=== PATIENT | female | born 1970 | race Caucasian/White ===

== ENCOUNTER 2020-10-18 07:31 | Outpatient (REF) | payer OTHER, SELFPAY ==
[2020-10-18 11:14] LABS: Alanine Aminotransferase 13 U/L (0-31); Albumin Level 4.4 g/dL (3.5-5.0); Alkaline Phosphatase 55 U/L (39-117); Anion Gap 12 (12-20); Aspartate Amino Transferase 13 U/L (5-31); Bilirubin Total 0.5 mg/dL (0.0-1.0); Blood Urea Nitrogen 18 mg/dL (9-16); Calcium 9.4 mg/dL (8.4-10.2); Carbon Dioxide 27 mmol/L (22-29); Chloride 104 mmol/L (96-108); Cholesterol 241 mg/dL; Estimated Glomerular Filt Rate > 60; Glucose Fasting 90 mg/dL (60-99); HDL Cholesterol 64 mg/dL; LDL Cholesterol Calculated 162 mg/dl; Potassium 4.3 mmol/L (3.3-5.1); Sodium 139 mmol/L (135-145); Total Protein 7.2 g/dL (6.5-8.0); Triglycerides 79 mg/dL
== END 2020-10-18 07:32 | disposition home or self-care (01) ==
LOC: HO.WFDLDS 07:31
PROVIDERS: Visit Provider Family Medicine
DX: Z00.00 Encounter for general adult medical examination without abnormal findings (principal)
CPT/HCPCS: 36415; 80053; 80061; 84443

== ENCOUNTER 2022-02-18 16:13 | Outpatient (REF) | payer OTHER, SELFPAY | END 2022-02-18 16:14 | disposition home or self-care (01) | LOC: HO.LAB 16:13 | PROVIDERS: Visit Provider Family Medicine | DX: Z13.89 Encounter for screening for other disorder (principal) ==

== ENCOUNTER 2022-02-19 14:00 | Outpatient (REF) | payer OTHER, SELFPAY ==
[2022-02-19 14:04] LABS: Urine Cytology See Pathology rpt
[2022-02-19 14:30] LABS: Appearance Urine Cloudy; Color Urine Yellow; Glucose Urine UA Negative (Negative); Leukocyte Esterase Urine Large (3+) (Negative); Nitrite Urine Negative (Negative); PH 6.5 (5.0-9.0); UMIC TRIGGER UA YES; Urine Blood Moderate (2+) (Negative); Urine Ketones Negative (Negative); Urine Protein Trace mg/dL (Neg-Trace)
[2022-02-19 14:43] LABS: Bacteria Urine Trace (None Seen); Calcium Oxalate Crystals Urine Present; Hyaline Casts Urine 0-2 /LPF (0-2); Squamous Epithelial Cell Urine 0-2 /HPF (0-2); WBC Urine >50 /HPF (0-5)
== END 2022-02-19 14:01 | disposition home or self-care (01) ==
LOC: HO.LNP 14:00
PROVIDERS: Visit Provider Family Medicine
DX: R31.9 Hematuria, unspecified (principal); N39.0 Urinary tract infection, site not specified
CPT/HCPCS: 81001; 87086; 87088; 87186; 88112

== ENCOUNTER 2023-05-28 07:12 | Outpatient (REF) | payer OTHER, SELFPAY ==
[2023-05-28 13:17] LABS: Cholesterol 295 mg/dL (<200); Free T4 (Free Thyroxine) 0.95 ng/dL (0.71-1.85); HDL Cholesterol 77 mg/dL (>40); LDL Cholesterol Calculated 198 mg/dL (<100); Thyroid Stimulating Hormone 2.28 uIU/mL (0.32-4.0); Triglycerides 100 mg/dL (<150)
[2023-05-30 02:28] LABS: Triiodothyronine T3 Free 3.6 pg/mL (2.3-4.2)
== END 2023-05-28 07:13 | disposition home or self-care (01) ==
LOC: HO.WFDLDS 07:12
PROVIDERS: Visit Provider Nurse Practitioner Women's Health
DX: N95.1 Menopausal and female climacteric states (principal)
CPT/HCPCS: 36415; 80061; 84439; 84443; 84481

== ENCOUNTER 2023-09-02 07:28 | Outpatient (REF) | payer OTHER, SELFPAY ==
[2023-09-02 11:33] LABS: Appearance Urine Clear; Color Urine Yellow; Glucose Urine UA Negative (Negative); Leukocyte Esterase Urine Negative (Negative); Nitrite Urine Negative (Negative); Urine Blood Negative (Negative); Urine Ketones Negative (Negative); Urine Protein Negative (Neg-Trace)
[2023-09-02 11:39] LABS: MANUAL DIFF FLAG NO
[2023-09-02 11:41] LABS: Basophils Percent Auto 0.8 % (0-2); Eosinophils Absolute Auto 0.1 X10*3/uL (0.0-0.4); Eosinophils Percent Auto 1.8 % (0-4); Hemoglobin 13.2 g/dl (12.0-16.0); Imm Gran Abs Auto 0.02 X10*3/uL (0.00-0.03); Imm Gran Pct Auto 0.4 % (0.0-0.4); Lymphocytes Absolute Auto 1.9 X10*3/uL (1.2-4.9); Lymphocytes Percent Auto 37.5 % (20-40); Mean Corpuscular HGB Conc 34.7 g/dl (31.0-35.0); Mean Corpuscular Hemoglobin 31.4 pg (27.0-33.0); Mean Corpuscular Volume 90.5 fL (80.0-98.0); Mean Platelet Volume 10.1 fL (9.4-12.3); Monocytes Absolute Auto 0.4 X10*3/uL (0.1-1.2); Monocytes Percent Auto 7.6 % (2-11); Neutrophils Absolute Auto 2.7 x10*3/uL (2.0-8.3); Neutrophils Percent Auto 51.9 % (45-73); Platelet Count 296 X10*3/uL (160-400); Red Cell Distribution Width 12.5 % (11.0-16.0); White Blood Count 5.1 X10*3/uL (4.8-10.8)
[2023-09-02 12:30] LABS: Alanine Aminotransferase 32 U/L (0-31); Albumin Level 4.2 g/dL (3.5-5.0); Alkaline Phosphatase 70 U/L (39-117); Anion Gap 11 (12-20); Aspartate Amino Transferase 26 U/L (5-31); Bilirubin Total 0.4 mg/dL (0.0-1.0); Blood Urea Nitrogen 17 mg/dL (9-16); Calcium 9.3 mg/dL (8.4-10.2); Carbon Dioxide 28 mmol/L (22-29); Chloride 104 mmol/L (96-108); Cholesterol 247 mg/dL (<200); Estimated Glomerular Filt Rate > 60; Glucose Fasting 93 mg/dL (60-99); HDL Cholesterol 67 mg/dL (>40); LDL Cholesterol Calculated 163 mg/dL (<100); Potassium 4.2 mmol/L (3.3-5.1); Sodium 139 mmol/L (135-145); Total Protein 7.3 g/dL (6.5-8.0); Triglycerides 88 mg/dL (<150)
[2023-09-02 12:35] LABS: TSH reflex Free T4 2.06 uIU/mL (0.32-4.0); Vitamin D 25-OH Total 51.3 ng/mL (>30)
[2023-09-02 12:50] LABS: Microalbumin Urine < 5.0 mg/L
== END 2023-09-02 07:29 | disposition home or self-care (01) ==
LOC: HO.WFDLDS 07:28
PROVIDERS: Visit Provider Family Medicine
DX: Z00.00 Encounter for general adult medical examination without abnormal findings (principal); E78.00 Pure hypercholesterolemia, unspecified; E55.9 Vitamin D deficiency, unspecified
CPT/HCPCS: 36415; 80053; 80061; 81003; 82043; 82306; 82570; 84443; 85025

== ENCOUNTER → 2023-09-12 16:26 | Outpatient (AMB) | payer OTHER, SELFPAY ==
[2023-09-12 16:30] VITALS: BP 138/72; PULSE 74; O2SAT 96; BMI 28.6
--- NOTE | 2023-09-12 16:30 | MHC.PC.OV ---
Vital Signs 09/12/23 16:30 Height 4 ft 11 in Weight 141 lb 6 oz BMI 28.6 BP 138/72 Blood Pressure Location Lt brachial Position Sitting Pulse 74 Pulse Source Pulse Oximeter Pulse Oximetry (%) 96 Oxygen Delivery Method Room Air Intake Visit Reasons: Lab review/ Cholesterol Intake Note: Patient is here for lab review/ on her cholesterol today. Allergies sulfamethoxazole [From Bactrim] Allergy (Verified 09/12/23 16:31) skin rash, fever trimethoprim [From Bactrim] Allergy (Verified 09/12/23 16:31) skin rash, fever Medication List - Last Reconciled 09/12/23 by Eric Doan MD No Known Home Meds Tobacco use date assessed: 09/12/23 Dental Screening Dental Screen Date: 07/15/23 HPI Lab review/ Cholesterol HPI Details 53 y/o female presents to f/u hyperlipidemia and labs. Had started her on artovastatin for her cholesterol levels. Labs were drawn 09/02/23. Reviewed labs with pt. Elevated ALT of 32. Triglycerides 88. TC 247. LDL improved from 198 to 163. HDL 67. She reports she had not been able to tolerate the artovastatin. Pt notes she continues to eat well and continues to exercise but still has difficulties losing weight. [facility] Medical History Menopause Vertigo UTI (urinary tract infection) Surgical History History of Family History (Updated 09/12/23 @ 16:41 by Angeles Poole CMA) Mother Substance abuse in family Mental health disorder Father Substance abuse in family Mental health disorder Brother Substance abuse in family Mental health disorder Sister Substance abuse in family Mental health disorder Maternal Grandfather Mental health disorder Paternal Grandfather Mental health disorder Social History Housing: House Alcohol intake: never Patient Tobacco Use Status: Former Tobacco user e-Cigarette/Vaping Use: Never Used service: No Current occupational status: employed 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 Cognitive needs: No Hearing needs: No Vision needs: Yes (Patient wears contacts) Review of Systems Const Denies chills, Denies fatigue, Denies fever(s), Denies headache(s) and Denies weakness ENT Denies dizziness and Denies headache(s) Card Denies chest pain, Denies lightheadedness, Denies dyspnea and Denies other (Palpitations) Resp Denies cough, Denies dyspnea, Denies wheezing and Denies other ( shortness of breath) Musc Denies numbness and Denies tingling Neuro Denies dizziness, Denies headache(s), Denies numbness, Denies tingling, Denies paresthesias and Denies weakness Psych Denies anxiety and Denies depression Endo Denies fatigue Aller/Immun Denies wheezing Physical exam (Primary Care) Vital Signs: Last Vital Signs Pulse 74 09/12/23 16:30 BP 138/72 09/12/23 16:30 Pulse Ox 96 09/12/23 16:30 Oxygen Delivery Method Room Air 09/12/23 16:30 BMI result Body Mass Index 28.6 Tobacco/Smoking Status: Tobacco use Status Tobacco use date assessed 09/12/23 09/12/23 16:33 Patient Tobacco Use Status Former Tobacco user 09/12/23 16:31 e-Cigarette/Vaping Use Never Used 09/12/23 16:31 Const General: no acute distress and well developed Nutritional Appearance: well nourished Orientation/consciousness: patient [facility]3 [facility] Head: Yes normocephalic and Yes atraumatic Eyes General: appearance normal, both eyes and all related structures Pupils: Equal, round and reactive pupils present EOM: EOMs intact bilaterally Resp Effort & Inspection: normal respiratory effort Auscultation: clear to auscultation bilaterally Cardio Rate: regular rate Rhythm: regular rhythm Heart sounds: S1 normal heart sound present, S2 normal heart sound present, no gallops, no murmurs and no rubs Neuro General: patient oriented x3 and gait normal Cranial nerves: Yes Equal, round and reactive pupils present Psych Affect: normal affect Assessment and Plan Assessment & Plan (1) Hypercholesterolemia: Code(s): E78.00 - Pure hypercholesterolemia, unspecified Plan: Cholesterol?levels?are?still?significantly?elevated.??She?does?have?good?HDL?numbers?but?likely?not?fully?protective. Had?prescribed?atorvastatin?but?she?did?not?tolerate?this. She?would?like?to?try?Zetia Will?repeat?lipids?in?about?3?months Strong?family?history?of?hypercholesterolemia.??Difficulty?with?weight?gain.??She?would?like?a?referral?to?weight?management?which?I?have?made. (2) Elevated ALT measurement: Code(s): R74.01 - Elevation of levels of liver transaminase levels Plan: Mildly?elevated?ALT. Likely?secondary?to?increasing?weight. Encouraged?weight?loss Will?repeat?at?next?visit Orders: Orders Lipid Panel Today E78.00 - Pure hypercholesterolemia, unspecified, Z00.00 - Encounter for general adult medical examination without abnormal findings Comprehensive [place]. Panel Fast Today E78.00 - Pure hypercholesterolemia, unspecified, Z00.00 - Encounter for general adult medical examination without abnormal findings Referrals Medical Weight Management Referral E78.00 - Pure hypercholesterolemia, unspecified, R63.5 - Abnormal weight gain, R74.01 - Elevation of levels of liver transaminase levels Medications: New ezetimibe (Zetia) 10 mg PO DAILY 90 tabs 1RF 90 days Coding Level of Care Code Est Pt Level 3 (92704) Diagnoses Hypercholesterolemia E78.00 Elevated ALT measurement R74.01
== END ==
PROVIDERS: PCP Family Medicine; Visit Provider Family Medicine
DX: E78.00 Pure hypercholesterolemia, unspecified (principal); R74.01 Elevation of levels of liver transaminase levels
CPT/HCPCS: 99213

== ENCOUNTER 2023-12-10 07:15 | Outpatient (REF) | payer OTHER, SELFPAY ==
[2023-12-10 12:07] LABS: Alanine Aminotransferase 11 U/L (0-31); Albumin Level 4.5 g/dL (3.5-5.0); Alkaline Phosphatase 62 U/L (39-117); Anion Gap 13 (12-20); Aspartate Amino Transferase 20 U/L (5-31); Bilirubin Total 0.3 mg/dL (0.0-1.0); Blood Urea Nitrogen 21 mg/dL (9-16); Calcium 9.7 mg/dL (8.4-10.2); Carbon Dioxide 25 mmol/L (22-29); Chloride 106 mmol/L (96-108); Cholesterol 238 mg/dL (<200); Estimated Glomerular Filt Rate > 60; Glucose Fasting 92 mg/dL (60-99); HDL Cholesterol 53 mg/dL (>40); LDL Cholesterol Calculated 151 mg/dL (<100); Sodium 140 mmol/L (135-145); Total Protein 7.9 g/dL (6.5-8.0); Triglycerides 170 mg/dL (<150)
== END 2023-12-10 07:16 | disposition home or self-care (01) ==
LOC: HO.WFDLDS 07:15
PROVIDERS: Visit Provider Family Medicine
DX: Z00.00 Encounter for general adult medical examination without abnormal findings (principal); E78.00 Pure hypercholesterolemia, unspecified
CPT/HCPCS: 36415; 80053; 80061

== ENCOUNTER 2023-12-16 09:36 | Outpatient (AMB) | payer OTHER, SELFPAY ==
--- NOTE | 2023-12-16 09:38 | MHC.PC.OV ---
Vital Signs 12/16/23 09:47 Height 4 ft 11 in Weight 132 lb 4 oz BMI 26.7 BP 104/70 Blood Pressure Location Lt brachial Position Sitting Respiration 12 Pulse 81 Pulse Source Pulse Oximeter Pulse Oximetry (%) 98 Oxygen Delivery Method Room Air Intake Visit Reasons: f/u weight & Cholesterol Intake Note: Follow up weight and cholesterol. Requesting prescription for Tirzepatide. 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 She did not tolerate arotvastatin - trialing Zetia. Labs were drawn 12/10/23. Reviewed labs with pt. Triglycerides 170. TC 238. LDL mildly improved from 163 to 151. Was unable to tolerate zetia. HDL 53. ALT improved from 32 to 11. Has lost almost 10 lbs since last office visit in August. She reports she has been taking tirzepatide since August and has been taking 6.25mg. She notes she had gradually increased to this dose. HPI Comments History of Present Illness Details Documentation assistance for Eric Doan MD, was provided by Son Pena, Briar Cutter on 12/16/2023 at 10:00 AM [place]. I, Dr. Doan, have read, observed, and verified documentation. PFSH Medical History Menopause Vertigo UTI (urinary tract infection) Surgical History History of Family History (Updated 09/12/23 @ 16:41 by Angeles Poole CMA) Mother Substance abuse in family Mental health disorder Father Substance abuse in family Mental health disorder Brother Substance abuse in family Mental health disorder Sister Substance abuse in family Mental health disorder Maternal Grandfather Mental health disorder Paternal Grandfather Mental health disorder Social History Housing: House Alcohol intake: never Patient Tobacco Use Status: Former Tobacco user Years Smoked: 35 e-Cigarette/Vaping Use: Never Used service: No Current occupational status: employed 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 1. Little interest or pleasure in doing things: not at all 2. Feeling down, depressed, or hopeless: not at all 3. Trouble falling or staying asleep, or sleeping too much: not at all 4. Feeling tired or having little energy: not at all 5. Poor appetite or overeating: not at all 6. Feeling bad about yourself - or that you are a failure or have let yourself or your family down: not at all 7. Trouble concentrating on things, such as reading the newspaper or watching television: not at all 8. Moving or speaking so slowly that other people could have noticed. Or the opposite - being so fidgety or restless that you have been moving around a lot more than usual: not at all 9. Thoughts that you would be better off or of hurting yourself in some way: not at all Total score: 0 Depression Screening Interpretation: Negative Depression Screening Done: Yes 37545 - PHQ-9 Billing: Yes Source: Developed by Drs. Geovany Flores, Opal Steinberg, Rojelio Gil and colleagues, with an educational jessica from [employer]. Thrive Questionnaire Date Thrive assessed: 12/16/23 I am a: Patient What is your living situation today?: I have a steady place to live Within the past 12 months, did the food you bought not last and you didn't have the money to get more?: Never true Within the past 12 months, did you worry whether your food would run out before you got money to buy more?: Never true Do you have trouble paying for medicines?: No Do you have trouble getting transportation to medical appointments?: No Do you have trouble paying your heating and electricity bill?: No Do you have trouble taking care of your child, family member or friend?: No Do you have trouble with day-to-day activities such as bathing, preparing meals, shopping, managing finances, etc.?: No Are you currently unemployed and looking for a job?: No Are you interested in more education?: No Please select the resources that you would like help with: None Currently or been in a relationship where the following occur: No concerns reported THRIVE Score: 0 AUDIT C Alcohol Use Questionnaire (AUDIT-C) 1. How often do you have a drink containing alcohol?: Never 3. How often do you have six or more drinks on one occasion?: Never Total Score: 0 WESLEY-7 AMB Questionnaire WESLEY-7 Date WESLEY - 7 assessed: 12/16/23 Feeling nervous, anxious, or on edge: 3 = Nearly every day Not being able to stop or control worryin = Not at all Worrying too much about different things: 3 = Nearly every day Trouble relaxin = Nearly every day Being so restless that it is hard to sit still: 0 = Not at all Becoming easily annoyed or irritable: 2 = More than half the days Feeling afraid as if something awful might happen: 0 = Not at all Total WESLEY-7 score (0-4 normal; 5-9 mild; 10-14 moderate; 15-21 severe): 11 Source: Developed by Drs. Geovany Flores, Opal Steinberg, Rojelio Gil and colleagues, with an educational jessica from [employer]. WESLEY-7 Assessment Billing WESLEY-7 Assessment Tool: WESLEY-7 Assessment 20607 Review of Systems Const Denies chills, Denies fatigue, Denies fever(s), Denies headache(s) and Denies weakness ENT Denies dizziness and Denies headache(s) Card Denies dyspnea Resp Denies cough, Denies dyspnea, Denies wheezing and Denies other (shortness of breath) Musc Denies numbness and Denies tingling Neuro Denies dizziness, Denies headache(s), Denies numbness, Denies tingling and Denies weakness Psych Denies anxiety and Denies depression Endo Denies fatigue Aller/Immun Denies wheezing Physical exam (Primary Care) Vital Signs: Last Vital Signs Pulse 81 12/16/23 09:47 Resp 12 12/16/23 09:47 BP 104/70 12/16/23 09:47 Pulse Ox 98 12/16/23 09:47 Oxygen Delivery Method Room Air 12/16/23 09:47 BMI result Body Mass Index 26.7 Tobacco/Smoking Status: Tobacco use Status Tobacco use date assessed 12/16/23 12/16/23 09:44 Patient Tobacco Use Status Former Tobacco user 12/16/23 09:39 e-Cigarette/Vaping Use Never Used 12/16/23 09:39 PHQ-9: PHQ-9 Score PHQ-9: Total score 0 12/16/23 09:48 Depression Screening Interpretation: Negative Thrive Assessment: Date of Thrive Assessment Date Thrive assessed 12/16/23 12/16/23 09:48 Currently or been in a relationship where the following occur: No concerns reported Const General: well developed; No acute distress Nutritional Appearance: well nourished Orientation/consciousness: patient oriented x3 [facility] Head: Yes normocephalic and Yes atraumatic Eyes General: appearance normal, both eyes and all related structures Pupils: Equal, round and reactive pupils present EOM: EOMs intact bilaterally Resp Effort & Inspection: normal respiratory effort Auscultation: clear to auscultation bilaterally Cardio Rate: regular rate Rhythm: regular rhythm Heart sounds: S1 normal heart sound present, S2 normal heart sound present, no gallops, no murmurs and no rubs Neuro General: patient oriented x3 and gait normal Cranial nerves: Yes Equal, round and reactive pupils present Psych Affect: normal affect Assessment and Plan Assessment & Plan (1) Hypercholesterolemia: Code(s): E78.00 - Pure hypercholesterolemia, unspecified Plan: Improved?with?weight?loss?but?LDL?is?still?well?above?goal?of?less?than?100 Continue?to?work?at?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?low?in?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?fats?and?cholesterol Briefly?discussed?supplements?as?she?has?not?tolerated?statins?or?Zetia Will?follow-up?in?3 mos (2) Elevated ALT measurement: Code(s): R74.01 - Elevation of levels of liver transaminase levels Plan: ALT?back?within?normal?range?after?losing?almost?10?lb Continue?weight?control?in?weight?low (3) Weight gain: Code(s): R63.5 - Abnormal weight gain Plan: Had?referred?patient?to?weight?management?but?wait?list?is?over?a?year She?has?gone?to?a?weight?loss?spot?and?was?given?Tirzepatide and?has?lost?almost?10?lb?already Good?weight?loss?and?I?encouraged?her?to?continue?weight?loss. She?requests?a?prescription?for?this?medication?and?we?will?try?that?as?it?is?working Medications: New tirzepatide 7.5 mg (0.5 mL) subcut QWEEK 28 days 2 mL 3RF Coding Level of Care Code Est Pt Level 4 (74344) Diagnoses Hypercholesterolemia E78.00 Elevated ALT measurement R74.01 Weight gain R63.5 Additional Codes WESLEY-7 Assessment Billing - WESLEY-7 Assessment Tool: WESLEY-7 Assessment [id number] ([id number])
[2023-12-16 09:47] VITALS: BP 104/70; PULSE 81; RESP 12; O2SAT 98; BMI 26.7
== END 2023-12-16 10:16 | disposition home or self-care (01) ==
PROVIDERS: PCP Family Medicine; Visit Provider Family Medicine
DX: E78.00 Pure hypercholesterolemia, unspecified (principal); R74.01 Elevation of levels of liver transaminase levels; R63.5 Abnormal weight gain
CPT/HCPCS: 99214